=== PATIENT | male | born 2000 | race African-American/Black ===

== ENCOUNTER 2019-01-24 11:56 | Emergency (ER) | payer SELFPAY ==
[~2019-01-24] VITALS: Ht 172.7 cm; Wt 56.7 kg
[2019-01-24 12:43] VITALS: BP 149/77
[2019-01-24] MEDS ORDERED: LIDO:MAALOX 1:1 20 ML SINGLE DOSE. SWSW ONE (13:00)
--- NOTE | 2019-01-24 13:09 | PHYS DOC ---
Past Medical History Past Medical History: No Pertinent History Past Surgical History: Other Additional Past Surgical Histo: "INTESTINAL" Alcohol Use: None Drug Use: None Adult General Chief Complaint Chief Complaint: ABDOMINAL PAIN HPI HPI Patient is a 18 year old 18 who presents with complaining of abdominal pain. Patient complaining of constant periumbilical and upper abdominal pain as a sharp pain for the last 4 months that getting worse with not eating. Patient rated his pain 10/10 and complaining of occasional episodes of nausea and vomiting and states he vomited last night once. Patient states he tried to have bowel movement to 2 times a day but his sister and his heart. Patient denies anorexia, fever and chills, urinary symptoms, weight loss, using drugs except for marijuana and drinking alcohol. Patient states he did not take any pain medication. Patient states his mother suggested to come to ER for evaluation. Review of Systems Review of Systems Constitutional: Denies fever or chills [] Eyes: Denies change in visual acuity, redness, or eye pain [] HENT: Denies nasal congestion or sore throat [] Respiratory: Denies cough or shortness of breath [] Cardiovascular: No additional information not addressed in HPI [] GI: Reports abdominal pain, nausea, vomiting, denies bloody stools or diarrhea [] : Denies dysuria or hematuria [] Musculoskeletal: Denies back pain or joint pain [] Integument: Denies rash or skin lesions [] Neurologic: Denies headache, focal weakness or sensory changes [] Endocrine: Denies polyuria or polydipsia [] All other systems were reviewed and found to be within normal limits, except as documented in this note. Current Medications Current Medications Current Medications Medications (Trade) Dose Ordered Sig/Chavez Start Time Stop Time Status Last Admin Dose Admin Multi-Ingredient Mouthwash/Gargle (Gi Cocktail) 20 ml 1X ONCE 01/24/19 13:00 01/24/19 13:02 DC Allergies Allergies Allergies Coded Allergies Type Severity Reaction Last Updated Verified No Known Drug Allergies 01/24/19 No Physical Exam Physical Exam Constitutional: Well developed, well nourished, no acute distress, non-toxic appearance. [] HENT: Normocephalic, atraumatic. Eyes: PERRLA, EOMI, conjunctiva normal, no discharge. [] Neck: Normal range of motion, no tenderness, supple, no stridor. [] Cardiovascular:Heart rate regular rhythm, no murmur [] Lungs & Thorax: Bilateral breath sounds clear to auscultation [] Abdomen: Bowel sounds normal, soft, no tenderness, no masses, no pulsatile masses. [] Skin: Warm, dry, no erythema, no rash. [] Back: No tenderness, no CVA tenderness. [] Extremities: No tenderness, no cyanosis, no clubbing, ROM intact, no edema. [] Neurologic: Alert and oriented X 3, no focal deficits noted. [] Psychologic: Affect normal, judgement normal, mood normal. [] Current Patient Data Vital Signs Vital Signs Date Time Temp Pulse Resp B/P (MAP) Pulse Ox O2 Delivery O2 Flow Rate FiO2 01/24/19 12:43 98.8 56 18 149/77 (101) 100 Room Air 98.8 EKG EKG [] Radiology/Procedures Radiology/Procedures [] Course & Med Decision Making Course & Med Decision Making Evaluation of patient in ER showed 18-year-old male patient with complaining of constant abdominal pain for 4 months. Patient decided to leave AMA. Dragon Disclaimer Dragon Disclaimer This electronic medical record was generated, in whole or in part, using a voice recognition dictation system. Departure Departure Impression: Primary Impression: Left against medical advice Additional Impression: Chronic abdominal pain Disposition: 07 AGAINST MEDICAL ADVICE Condition: STABLE Referrals: NO PCP (PCP) Problem Qualifiers SILVESTRE RESTREPO MD Jan 24, 2019 13:09
[2019-01-24 13:16] LABS: BILIRUBIN,URINE NEGATIVE (NEG); CLARITY,URINE CLEAR; COLOR,URINE YELLOW; NITRITE,URINE NEGATIVE (NEG); PROTEIN,URINE NEGATIVE (NEG-TRACE)
[2019-01-24 13:24] LABS: BARBITURATES NEG (NEG); BENZODIAZEPINES NEG (NEG); CANNABINOIDS POS (NEG); COCAINE NEG (NEG); METHADONE NEG (NEG); OPIATES NEG (NEG); PHENCYCLIDINE NEG (NEG)
[2019-01-24 13:29] LABS: AMPHETAMINE/METHAMPHETAMINE NEG (NEG)
[2019-01-24 13:44] LABS: BACTERIA,URINE 0 /HPF (0-FEW); RBC,URINE 0 /HPF (0-2); SQUAMOUS EPITHELIAL CELL,UR FEW /LPF
== END 2019-01-24 13:16 | disposition left against medical advice (07) ==
LOC: ER 11:56
DX: G89.29 Other chronic pain (principal); R10.33 Periumbilical pain; R11.2 Nausea with vomiting, unspecified
CPT/HCPCS: 80307; 81001; 99284